=== PATIENT | female | born 1980 | race Caucasian/White ===

== ENCOUNTER 2019-06-18 08:19 | Emergency (ER) | payer OTHER ==
[~2019-06-18] VITALS: Ht 162.6 cm; Wt 67.4 kg
[2019-06-18 08:35] VITALS: Ht 162.6 cm; Wt 67.4 kg
[2019-06-18 11:40] VITALS: BP 153/84
== END 2019-06-18 11:40 | disposition home or self-care (01) ==
LOC: ED 08:19
DX: S02.2XXA Fracture of nasal bones, initial encounter for closed fracture (principal); S01.21XA Laceration without foreign body of nose, initial encounter; W18.39XA Other fall on same level, initial encounter; Y93.89 Activity, other specified; Y92.89 Other specified places as the place of occurrence of the external cause; Y99.8 Other external cause status
CPT/HCPCS: 90715